=== PATIENT | male | born 1945 | race Caucasian/White ===

== ENCOUNTER 2019-02-25 17:18 | Inpatient (IN) | payer MEDICARE, OTHER ==
[~2019-02-25] VITALS: Ht 188 cm; Wt 111.6 kg
[2019-02-25 17:53] LABS: BASOPHILS # (AUTO) 0.1 X10'3 (0-0.2); BASOPHILS % (AUTO) 1.1 % (0-1); EOSINOPHILS # (AUTO) 0.1 X10'3 (0-0.9); EOSINOPHILS % (AUTO) 0.9 % (0-6); HEMATOCRIT 25.7 % (42.0-52.0); HEMOGLOBIN 8.1 g/dl (14.0-17.9); LYMPHOCYTES # (AUTO) 2.4 X10'3 (1.1-4.8); LYMPHOCYTES % (AUTO) 27.4 % (21-51); MEAN CORPUSCULAR HEMOGLOBIN 23.4 PG (27.0-31.0); MEAN CORPUSCULAR HGB CONC 31.5 g/dL (33.0-36.5); MEAN CORPUSCULAR VOLUME 74.4 FL (78-98); MEAN PLATELET VOLUME 7.6 FL (7.4-10.4); MONOCYTES % (AUTO) 11.7 % (2-12); NEUTROPHILS # (AUTO) 5.2 X10'3 (1.8-7.7); NEUTROPHILS % (AUTO) 58.9 % (42-75); PLATELET COUNT 338 X10'3 (140-440); RED BLOOD COUNT 3.45 X10'6 (4.70-6.10); RED CELL DISTRIBUTION WIDTH 18.1 % (11.5-14.5); WHITE BLOOD COUNT 8.9 X10'3 (4.5-11.0)
[2019-02-25 18:08] LABS: ALANINE AMINOTRANSFERASE 17 U/L (12-78); ALBUMIN 3.5 G/DL (3.4-5.0); ALBUMIN/GLOBULIN RATIO 1.2 (1.1-1.5); ALKALINE PHOSPHATASE 57 IU/L (46-116); ANION GAP 10 (8-16); ASPARTATE AMINO TRANSFERASE 7 U/L (10-37); BILIRUBIN,TOTAL 0.2 MG/DL (0.1-1.0); BLOOD UREA NITROGEN 26 MG/DL (7-18); BUN/CREATININE RATIO 23.6 (5.4-32.0); CALCIUM 8.9 MG/DL (8.5-10.1); CHLORIDE 104 MMOL/L (99-107); GLUCOSE 200 MG/DL (70-104); POTASSIUM 3.7 MMOL/L (3.5-5.1); SODIUM 137 MMOL/L (135-145); TOTAL CARBON DIOXIDE 22.9 MMOL/L (24-32); TOTAL PROTEIN 6.5 G/DL (6.4-8.2); eGFR 66 ML/MIN
[2019-02-25 18:12] LABS: PARTIAL THROMBOPLASTIN TIME 23 SECONDS (22-32); PROTHROMBIN TIME 10.6 SECONDS (9.0-12.0)
[2019-02-25 18:15] LABS: MAGNESIUM 1.8 MG/DL (1.5-2.4)
[2019-02-25] MEDS ORDERED: normal saline 1000ml 1,000 ML IV ONE (18:50)
--- NOTE | 2019-02-25 18:54 | NUR ---
OBTAINED ORTHOSTATIC VITALS DUE TO PT'S SYPTOMS AND H&P, SHOWN TO DR ANTHONY AND ORDERS RECEIVED FOR 1 LITER OF NS BOLUS. PT IS ON 2 DIFFERENT DIURECTICS AND JUST HAD ANTIHYPERTENSIVE MED CHANGED BY [facility] BECAUSE THE LAST ONE WAS ALSO MAKING HIM DIZZY.
[2019-02-25] MEDS ORDERED: pantoprazole IV 80 MG in normal saline 100ml IV soln 100 ML IV ONE ×4 (19:50)
[2019-02-25] MEDS ORDERED: pantoprazole 40MG/NS 100ML BAG 100 ML IV ONE (19:55)
[2019-02-25] MEDS ORDERED: pantoprazole 40 MG vial IV ONE (19:55)
[2019-02-25] MEDS ORDERED: CARV6.253 PO (20:05)
[2019-02-25] MEDS ORDERED: LISI-600 PO (20:05)
[2019-02-25] MEDS ORDERED: FURO-150 PO (20:05)
[2019-02-25] MEDS ORDERED: EZET10TA13 PO (20:05)
[2019-02-25] MEDS ORDERED: SPIR25TA5 PO (20:05)
[2019-02-25] MEDS ORDERED: CLOP75TA15 PO (20:05)
[2019-02-25] MEDS ORDERED: ROSU5TAB PO (20:05)
--- NOTE | 2019-02-25 20:06 | NUR ---
RECTAL EXAM PER DR ANTHONY, OCCULT BLOOD POSITIVE, PLAN ADMIT AND POSSIBLE EGD PT IS ON PLAVIX.
[2019-02-25] MEDS ORDERED: temazepam 15mg capsule PO PRN (21:00)
[2019-02-25] MEDS ORDERED: magnesium hydroxide 30ml (MOM) UD suspension PO PRN (21:05)
[2019-02-25] MEDS ORDERED: HYDROcodone/acetaminophen 10/325mg tab PO PRN (21:05)
[2019-02-25] MEDS ORDERED: HYDROcodone/acetaminophen 5mg/325mg tablet PO PRN (21:05)
[2019-02-25] MEDS ORDERED: ondansetron/PF 4mg/2ml inj IV PRN (21:05)
[2019-02-25] MEDS ORDERED: mag hydrox/Alum hydrox/simeth 30ml oral suspension PO PRN (21:05)
[2019-02-25] MEDS ORDERED: acetaminophen 325mg tablet PO PRN ×2 (21:05)
[2019-02-25] MEDS: normal saline 1000ml 1,000 ML IV SCH (21:23)
--- NOTE | 2019-02-25 21:41 | NUR ---
NURSE UNAVAIL FOR REPORT, WITH PT, TO CALL BACK
[2019-02-25 21:43] LABS: OCCULT BLOOD STOOL POSITIVE (Neg)
[2019-02-25 22:15] VITALS: BP 129/64
[2019-02-26] VITALS (12 sets, daily range): BP systolic 106–151; BP diastolic 55–76
[2019-02-26] MEDS: pantoprazole 40MG/NS 100ML BAG 100 ML IV SCH ×4 (01:54→13:55)
--- NOTE | 2019-02-26 06:07 | NUR ---
Problems reprioritized. Patient report given, questions answered & plan of care reviewed with SREEKANTH Machuca.
--- NOTE | 2019-02-26 06:08 | NUR ---
Patient in room PCU 3023. I have received report from SREEKANTH Machuca and had the opportunity to ask questions and assume patient care.
[2019-02-26 06:32] LABS: BASOPHILS % (AUTO) 0.6 % (0-1); EOSINOPHILS # (AUTO) 0.1 X10'3 (0-0.9); EOSINOPHILS % (AUTO) 1.6 % (0-6); HEMOGLOBIN 7.2 g/dl (14.0-17.9); LYMPHOCYTES # (AUTO) 2.3 X10'3 (1.1-4.8); LYMPHOCYTES % (AUTO) 31.6 % (21-51); MEAN CORPUSCULAR HEMOGLOBIN 23.6 PG (27.0-31.0); MEAN CORPUSCULAR HGB CONC 31.4 g/dL (33.0-36.5); MEAN CORPUSCULAR VOLUME 75.2 FL (78-98); MEAN PLATELET VOLUME 7.8 FL (7.4-10.4); MONOCYTES # (AUTO) 0.8 X10'3 (0-0.9); MONOCYTES % (AUTO) 11.5 % (2-12); NEUTROPHILS % (AUTO) 54.7 % (42-75); PLATELET COUNT 329 X10'3 (140-440); RED BLOOD COUNT 3.06 X10'6 (4.70-6.10); RED CELL DISTRIBUTION WIDTH 18.1 % (11.5-14.5); WHITE BLOOD COUNT 7.4 X10'3 (4.5-11.0)
[2019-02-26 06:52] LABS: ANION GAP 9 (8-16); BLOOD UREA NITROGEN 20 MG/DL (7-18); CALCIUM 8.6 MG/DL (8.5-10.1); CHLORIDE 107 MMOL/L (99-107); CREATININE 0.87 MG/DL (0.60-1.10); GLUCOSE 166 MG/DL (70-104); POTASSIUM 3.5 MMOL/L (3.5-5.1); SODIUM 141 MMOL/L (135-145); TOTAL CARBON DIOXIDE 25.4 MMOL/L (24-32); eGFR 86 ML/MIN
[2019-02-26] MEDS: lisinopril 20mg tablet PO SCH (08:00)
[2019-02-26] MEDS: ezetimibe 10mg tablet PO SCH (08:00)
[2019-02-26] MEDS: carvedilol 6.25mg tablet PO SCH ×2 (08:00→19:18)
[2019-02-26] MEDS: normal saline 1000ml 1,000 ML IV SCH ×2 (08:14→17:03)
--- NOTE | 2019-02-26 10:57 | NUR ---
Notified of telephone recorder of 4 beat run of V-tach. Pt assessed and vital signs obtained; all WNL. Dr. Flores notified at nurse's station. Orders received re hyperglycemic protocol, diabetes education & carb controlled diet. Pt to remain NPO while awaiting EGD.
[2019-02-26] MEDS ORDERED: insulin Lispro (HumaLOG) vial - multi-dose SQ SCH (11:00)
[2019-02-26] MEDS ORDERED: dextrose 50%-water 50ml dispensing syringe IV PRN ×2 (11:00)
[2019-02-26] MEDS ORDERED: glucagon, human recombinant 1mg kit SUBCUT PRN (11:00)
[2019-02-26] MEDS ORDERED: dextrose ORAL solution 15 GM/59 ML bottle PO PRN ×2 (11:00)
[2019-02-26] MEDS ORDERED: MESSAGE TO PHARMACY PO ONE (11:00)
[2019-02-26 12:26] LABS: HEMATOCRIT 24.5 % (42.0-52.0); MEAN CORPUSCULAR HEMOGLOBIN 24.4 PG (27.0-31.0); MEAN CORPUSCULAR HGB CONC 32.7 g/dL (33.0-36.5); MEAN CORPUSCULAR VOLUME 74.6 FL (78-98); MEAN PLATELET VOLUME 7.7 FL (7.4-10.4); PLATELET COUNT 337 X10'3 (140-440); RED BLOOD COUNT 3.29 X10'6 (4.70-6.10); RED CELL DISTRIBUTION WIDTH 18.3 % (11.5-14.5); WHITE BLOOD COUNT 9.9 X10'3 (4.5-11.0)
--- NOTE | 2019-02-26 13:07 | NUR ---
DM Consult: A1C 9.0. Pt admit w/ dizziness found to have GIB currently NPO pending EGD. Pt hx blind, heard of hearing, TKA, and lives w/ spouse per EMR. No DM meds at home in EMR and states borderline DM though A1C 9.0. Pt not appropriate for written ed but /pt would benefit from ed once pt stable s/p EGD. LB 02/25. Will continue to monitor for appropriateness of DM ed prior to d/c. Rec: 1. continue regular diet 2. monitor for ONS needs 3. DM ed w/ spouse once stable prior to d/c 4. wt per rx Addendum: 02/26/19 at [address] Amended: Links added.
--- NOTE | 2019-02-26 14:15 | NUR ---
Pt transported out of room via wheelchair to GI lab.
[2019-02-26] MEDS ORDERED: fentaNYL/PF 50MCG/1 ML 2ML syringe ONE (14:28)
[2019-02-26] MEDS ORDERED: MIDAZolam 5mg/5ml vial ONE (14:28)
[2019-02-26] MEDS ORDERED: LIDOcaine Viscous 15ml cup ONE (14:31)
--- NOTE | 2019-02-26 15:41 | NUR ---
Pt returned to room from GI lab.
--- NOTE | 2019-02-26 17:45 | NUR ---
Dr. Flores at bedside.
--- NOTE | 2019-02-26 18:17 | NUR ---
Problems reprioritized. Patient report given, questions answered & plan of care reviewed with SREEKANTH Tilley.
--- NOTE | 2019-02-26 18:25 | NUR ---
Patient in room PCU 3023A. I have received report from SREEKANTH Machuca and had the opportunity to ask questions and assume patient care.
--- NOTE | 2019-02-26 18:30 | NUR ---
Patient in room PCU 3023. I have received report from DAY SHIFT RN and had the opportunity to ask questions and assume patient care WITH KRISTA STACK
[2019-02-26] MEDS: pantoprazole 40 MG vial IV SCH (19:18)
[2019-02-26] MEDS: insulin glargine (Lantus) pen - multi-dose SQ SCH (21:00)
--- NOTE | 2019-02-26 21:21 | NUR ---
Lantus non-administered due to MD order NPO post administration of gastrografin for CAB.
[2019-02-26] MEDS: diatr meglu/diatrizoate 30ml oral sol.-(3 dose) bottle PO SCH (22:33)
[2019-02-27] VITALS (13 sets, daily range): BP systolic 104–157; BP diastolic 63–76
[2019-02-27] MEDS: normal saline 1000ml 1,000 ML IV SCH (03:03)
--- NOTE | 2019-02-27 05:30 | NUR ---
oRIENTEE documentation: I have reviewed and agree with all interventions, assessments performed and documented by Aishwarya flores.
[2019-02-27 06:08] LABS: BASOPHILS % (AUTO) 0.7 % (0-1); EOSINOPHILS # (AUTO) 0.1 X10'3 (0-0.9); EOSINOPHILS % (AUTO) 2.4 % (0-6); LYMPHOCYTES # (AUTO) 1.6 X10'3 (1.1-4.8); LYMPHOCYTES % (AUTO) 25.8 % (21-51); MEAN CORPUSCULAR HEMOGLOBIN 23.9 PG (27.0-31.0); MEAN CORPUSCULAR HGB CONC 32.1 g/dL (33.0-36.5); MEAN CORPUSCULAR VOLUME 74.3 FL (78-98); MEAN PLATELET VOLUME 7.6 FL (7.4-10.4); MONOCYTES # (AUTO) 0.6 X10'3 (0-0.9); MONOCYTES % (AUTO) 10.5 % (2-12); NEUTROPHILS # (AUTO) 3.7 X10'3 (1.8-7.7); NEUTROPHILS % (AUTO) 60.6 % (42-75); PLATELET COUNT 285 X10'3 (140-440); RED BLOOD COUNT 2.74 X10'6 (4.70-6.10); RED CELL DISTRIBUTION WIDTH 18.4 % (11.5-14.5); WHITE BLOOD COUNT 6.1 X10'3 (4.5-11.0)
[2019-02-27 06:16] LABS: HEMATOCRIT 20.4 % (42.0-52.0); HEMOGLOBIN 6.5 g/dl (14.0-17.9)
[2019-02-27 06:19] LABS: ALBUMIN 2.8 G/DL (3.4-5.0); ANION GAP 9 (8-16); BLOOD UREA NITROGEN 15 MG/DL (7-18); BUN/CREATININE RATIO 17.9 (5.4-32.0); CALCIUM 8.5 MG/DL (8.5-10.1); CHLORIDE 108 MMOL/L (99-107); CREATININE 0.84 MG/DL (0.60-1.10); GLUCOSE 160 MG/DL (70-104); POTASSIUM 3.9 MMOL/L (3.5-5.1); SODIUM 141 MMOL/L (135-145); eGFR 90 ML/MIN
--- NOTE | 2019-02-27 06:29 | NUR ---
Patient in room PCU 3023. I have received report from SREEKANTH Tilley and had the opportunity to ask questions and assume patient care.
--- NOTE | 2019-02-27 06:30 | NUR ---
Notified Dr. Malave of critical H&H of 6.5 and 20.4. TORB DC NS 100 mL/hr, Transfuse 1 unit PRBC's, and draw hemogram 2 hours after transfusion. Notified oncoming nurse, SREEKANTH Machuca.
--- NOTE | 2019-02-27 06:35 | NUR ---
Problems reprioritized. Patient report given, questions answered & plan of care reviewed with SREEKANTH Machuca.
[2019-02-27] MEDS: diatr meglu/diatrizoate 30ml oral sol.-(3 dose) bottle PO SCH ×2 (07:17→11:50)
[2019-02-27] MEDS: carvedilol 6.25mg tablet PO SCH ×2 (07:20→20:55)
[2019-02-27] MEDS: atorvastatin 20mg tablet PO SCH (07:21)
[2019-02-27] MEDS: pantoprazole 40 MG vial IV SCH ×2 (07:25→20:55)
[2019-02-27] MEDS: lisinopril 20mg tablet PO SCH (07:30)
[2019-02-27] MEDS: ezetimibe 10mg tablet PO SCH (07:31)
--- NOTE | 2019-02-27 09:36 | NUR ---
Paged Dr. Flores re recent order of blood. PAGER ID: [phone] MESSAGE: Abdiel Burgos in [phone]. Dr. Malave ordered blood this AM, currently running. Do you want another? Thanks! Brigette STACK [phone] Addendum: 02/27/19 at 1013 by Mary Grace Jiménez RN Dr. Flores at bedside, order received to cancel 2nd blood order.
[2019-02-27] MEDS ORDERED: iohexol 300mg/ml 100ml inj. ONE (10:05)
[2019-02-27 13:30] LABS: HEMATOCRIT 25.5 % (42.0-52.0); MEAN CORPUSCULAR HEMOGLOBIN 23.7 PG (27.0-31.0); MEAN CORPUSCULAR HGB CONC 31.4 g/dL (33.0-36.5); MEAN CORPUSCULAR VOLUME 75.3 FL (78-98); MEAN PLATELET VOLUME 7.5 FL (7.4-10.4); PLATELET COUNT 331 X10'3 (140-440); RED BLOOD COUNT 3.39 X10'6 (4.70-6.10); WHITE BLOOD COUNT 7.5 X10'3 (4.5-11.0)
--- NOTE | 2019-02-27 14:49 | NUR ---
F/u: Pt seen by RD for written/verbal DM ed w/ RD contact information provided. Pt is able to see and watch tv w/ specialized glasses on. not present but RD answered pt questions/concerns regarding DM diet guidelines. Pt carb controlled diet cancelled; [employer] for addition of carb controlled per approval given A1C 9.0. Addendum: 02/27/19 at [address] Amended: Links added.
--- NOTE | 2019-02-27 18:28 | NUR ---
Patient in room PCU 3023. I have received report from SREEKANTH Villa and had the opportunity to ask questions and assume patient care.
--- NOTE | 2019-02-27 18:30 | NUR ---
Patient in room PCU 3023. I have received report from Brigette STACK and had the opportunity to ask questions and assume patient care.
[2019-02-27 19:38] LABS: HEMATOCRIT 25.2 % (42.0-52.0); HEMOGLOBIN 8.2 g/dl (14.0-17.9); MEAN CORPUSCULAR HEMOGLOBIN 24.4 PG (27.0-31.0); MEAN CORPUSCULAR HGB CONC 32.3 g/dL (33.0-36.5); MEAN CORPUSCULAR VOLUME 75.4 FL (78-98); MEAN PLATELET VOLUME 7.5 FL (7.4-10.4); PLATELET COUNT 327 X10'3 (140-440); RED BLOOD COUNT 3.35 X10'6 (4.70-6.10); RED CELL DISTRIBUTION WIDTH 18.8 % (11.5-14.5); WHITE BLOOD COUNT 6.8 X10'3 (4.5-11.0)
[2019-02-27] MEDS: docusate sod 100mg capsule PO SCH (20:55)
[2019-02-27] MEDS: insulin glargine (Lantus) pen - multi-dose SQ SCH (21:00)
[2019-02-28 01:27] LABS: ALBUMIN 3.2 G/DL (3.4-5.0); ANION GAP 7 (8-16); BLOOD UREA NITROGEN 13 MG/DL (7-18); BUN/CREATININE RATIO 13.4 (5.4-32.0); CALCIUM 8.8 MG/DL (8.5-10.1); CHLORIDE 106 MMOL/L (99-107); CREATININE 0.97 MG/DL (0.60-1.10); GLUCOSE 131 MG/DL (70-104); POTASSIUM 3.9 MMOL/L (3.5-5.1); SODIUM 141 MMOL/L (135-145); TOTAL CARBON DIOXIDE 27.6 MMOL/L (24-32); eGFR 76 ML/MIN
[2019-02-28 01:29] LABS: BASOPHILS # (AUTO) 0.1 X10'3 (0-0.2); BASOPHILS % (AUTO) 1.2 % (0-1); EOSINOPHILS # (AUTO) 0.2 X10'3 (0-0.9); EOSINOPHILS % (AUTO) 3.3 % (0-6); HEMATOCRIT 24.6 % (42.0-52.0); HEMOGLOBIN 7.9 g/dl (14.0-17.9); LYMPHOCYTES % (AUTO) 33.5 % (21-51); MEAN CORPUSCULAR HEMOGLOBIN 24.2 PG (27.0-31.0); MEAN CORPUSCULAR HGB CONC 32.1 g/dL (33.0-36.5); MEAN CORPUSCULAR VOLUME 75.6 FL (78-98); MEAN PLATELET VOLUME 7.5 FL (7.4-10.4); MONOCYTES # (AUTO) 0.8 X10'3 (0-0.9); MONOCYTES % (AUTO) 13.4 % (2-12); NEUTROPHILS # (AUTO) 2.8 X10'3 (1.8-7.7); NEUTROPHILS % (AUTO) 48.6 % (42-75); PLATELET COUNT 326 X10'3 (140-440); RED BLOOD COUNT 3.25 X10'6 (4.70-6.10); RED CELL DISTRIBUTION WIDTH 18.6 % (11.5-14.5); WHITE BLOOD COUNT 5.8 X10'3 (4.5-11.0)
[2019-02-28 02:00] VITALS: BP 123/69
[2019-02-28 03:36] LABS: PLATELET ESTIMATE NORMAL
[2019-02-28 03:37] LABS: ANISOCYTOSIS 2+; HYPOCHROMASIA 1+; MICROCYTOSIS 1+; POLYCHROMASIA 1+
[2019-02-28 06:00] VITALS: BP 110/74
--- NOTE | 2019-02-28 06:18 | NUR ---
Problems reprioritized. Patient report given, questions answered & plan of care reviewed with Stefany STACK.
--- NOTE | 2019-02-28 06:30 | NUR ---
Patient in room PCU 3023. I have received report from Daisy STACK and had the opportunity to ask questions and assume patient care. Patient awake in bed and in no acute distress. Will continue to monitor.
[2019-02-28 07:32] LABS: HEMATOCRIT 24.8 % (42.0-52.0); MEAN CORPUSCULAR HEMOGLOBIN 24.1 PG (27.0-31.0); MEAN CORPUSCULAR HGB CONC 32.2 g/dL (33.0-36.5); MEAN CORPUSCULAR VOLUME 74.9 FL (78-98); MEAN PLATELET VOLUME 7.3 FL (7.4-10.4); PLATELET COUNT 340 X10'3 (140-440); RED BLOOD COUNT 3.31 X10'6 (4.70-6.10); RED CELL DISTRIBUTION WIDTH 18.7 % (11.5-14.5); WHITE BLOOD COUNT 6.8 X10'3 (4.5-11.0)
[2019-02-28] MEDS: pantoprazole 40 MG vial IV SCH ×3 (07:40→19:58)
[2019-02-28] MEDS: docusate sod 100mg capsule PO SCH ×2 (09:56→19:58)
[2019-02-28] MEDS: lisinopril 20mg tablet PO SCH (09:56)
[2019-02-28] MEDS: carvedilol 6.25mg tablet PO SCH ×2 (09:56→19:58)
[2019-02-28] MEDS: ezetimibe 10mg tablet PO SCH (09:56)
[2019-02-28 11:00] VITALS: BP 140/74
--- NOTE | 2019-02-28 13:40 | NUR ---
Patient met hyperglycemic protocol. Did not administer Humalog per protocol as patient refused.
--- NOTE | 2019-02-28 13:42 | NUR ---
Paged Dr. Velasquez: PAGER ID: [phone] MESSAGE: Stefany Liz [phone]. RE: Marcela Burgos [phone]. FYI - notified by telephone solicitor that patient just had 2.5 second pause. Patient was awake in bed and asymptomatic.
[2019-02-28 15:00] VITALS: BP 119/64
[2019-02-28 18:00] VITALS: BP 121/64
--- NOTE | 2019-02-28 18:11 | NUR ---
Problems reprioritized. Patient report given, questions answered & plan of care reviewed with Daisy STACK.
--- NOTE | 2019-02-28 18:30 | NUR ---
Patient in room PCU 3023. I have received report from Stefany STACK and had the opportunity to ask questions and assume patient care.
[2019-02-28] MEDS: insulin glargine (Lantus) pen - multi-dose SQ SCH (21:00)
[2019-02-28 22:00] VITALS: BP 107/49
[2019-03-01 02:00] VITALS: BP 135/77
[2019-03-01 05:59] LABS: BASOPHILS # (AUTO) 0.1 X10'3 (0-0.2); EOSINOPHILS # (AUTO) 0.2 X10'3 (0-0.9); EOSINOPHILS % (AUTO) 2.4 % (0-6); HEMATOCRIT 26.4 % (42.0-52.0); HEMOGLOBIN 8.6 g/dl (14.0-17.9); LYMPHOCYTES # (AUTO) 2.1 X10'3 (1.1-4.8); LYMPHOCYTES % (AUTO) 26.2 % (21-51); MEAN CORPUSCULAR HEMOGLOBIN 24.1 PG (27.0-31.0); MEAN CORPUSCULAR HGB CONC 32.4 g/dL (33.0-36.5); MEAN CORPUSCULAR VOLUME 74.2 FL (78-98); MEAN PLATELET VOLUME 7.6 FL (7.4-10.4); MONOCYTES # (AUTO) 0.9 X10'3 (0-0.9); MONOCYTES % (AUTO) 11.6 % (2-12); NEUTROPHILS # (AUTO) 4.7 X10'3 (1.8-7.7); NEUTROPHILS % (AUTO) 58.8 % (42-75); PLATELET COUNT 365 X10'3 (140-440); RED BLOOD COUNT 3.56 X10'6 (4.70-6.10); RED CELL DISTRIBUTION WIDTH 19.2 % (11.5-14.5); WHITE BLOOD COUNT 7.9 X10'3 (4.5-11.0)
[2019-03-01 06:06] LABS: ALBUMIN 3.3 G/DL (3.4-5.0); ANION GAP 8 (8-16); BLOOD UREA NITROGEN 14 MG/DL (7-18); BUN/CREATININE RATIO 15.7 (5.4-32.0); CALCIUM 9.1 MG/DL (8.5-10.1); CHLORIDE 104 MMOL/L (99-107); CREATININE 0.89 MG/DL (0.60-1.10); GLUCOSE 164 MG/DL (70-104); POTASSIUM 3.8 MMOL/L (3.5-5.1); SODIUM 137 MMOL/L (135-145); TOTAL CARBON DIOXIDE 25.5 MMOL/L (24-32); eGFR 84 ML/MIN
--- NOTE | 2019-03-01 06:12 | NUR ---
Problems reprioritized. Patient report given, questions answered & plan of care reviewed with Stefany STACK.
[2019-03-01 06:33] LABS: ANISOCYTOSIS 2+; LARGE PLATELETS FEW; MICROCYTOSIS 1+; PLATELET ESTIMATE NORMAL
[2019-03-01 06:34] LABS: HYPOCHROMASIA 1+; POLYCHROMASIA FEW
--- NOTE | 2019-03-01 06:35 | NUR ---
Patient in room PCU 3022. I have received report from Daisy STACK and had the opportunity to ask questions and assume patient care. Patient resting comfortably in bed. In no acute distress. Will continue to monitor.
[2019-03-01 07:00] VITALS: BP 116/66
[2019-03-01] MEDS: carvedilol 6.25mg tablet PO SCH (08:00)
[2019-03-01] MEDS: docusate sod 100mg capsule PO SCH (08:00)
[2019-03-01] MEDS: lisinopril 20mg tablet PO SCH (08:00)
[2019-03-01] MEDS: atorvastatin 20mg tablet PO SCH (09:47)
[2019-03-01] MEDS: ezetimibe 10mg tablet PO SCH (09:47)
[2019-03-01] MEDS: pantoprazole 40 MG vial IV SCH (09:48)
--- NOTE | 2019-03-01 10:54 | NUR ---
Paged Dr. Rey: PAGER ID: [phone] MESSAGE: Stefany [facility] [phone]. RE: Aubrey, Marcela [phone]. I have a hardcopy of the pathology report you requested. I put it in the front of the patient's chart for your review. Thank you.
[2019-03-01 11:00] VITALS: BP 126/65
[2019-03-01] MEDS ORDERED: PANT-47 PO (11:37)
[2019-03-01] MEDS ORDERED: ASPI81TA52 PO (11:39)
--- NOTE | 2019-03-01 14:30 | NUR ---
[place] Medication Administration: For this medication-pass time frame, all medication were reviewed, dispensed, administered and documented per hospital policy by Rachel STACK.
== END 2019-03-01 14:23 | disposition home or self-care (01) | DRG 378 ==
LOC: ER 17:19 → PCU 3S 21:03 → CMPBEDREQ 02-26 01:38 → PCU 3S 03-01 02:11
PROVIDERS: ADMIT Hospitalist; ATTEND Internal Medicine
PROC: 0DB98ZX Excision of Duodenum, Via Natural or Artificial Opening Endoscopic, Diagnostic (ICD-10-PCS; principal; 2019-02-26)
PROC: 30233N1 Transfusion of Nonautologous Red Blood Cells into Peripheral Vein, Percutaneous Approach (ICD-10-PCS; 2019-02-27)
PROC: BW251ZZ Computerized Tomography (CT Scan) of Chest, Abdomen and Pelvis using Low Osmolar Contrast (ICD-10-PCS; 2019-02-27)
DX: K26.4 Chronic or unspecified duodenal ulcer with hemorrhage (principal); D62 Acute posthemorrhagic anemia; I50.9 Heart failure, unspecified; I25.10 Atherosclerotic heart disease of native coronary artery without angina pectoris; D50.9 Iron deficiency anemia, unspecified; E27.8 Other specified disorders of adrenal gland; K31.89 Other diseases of stomach and duodenum; Z96.652 Presence of left artificial knee joint; H54.7 Unspecified visual loss; H91.90 Unspecified hearing loss, unspecified ear; Z95.5 Presence of coronary angioplasty implant and graft; Z79.899 Other long term (current) drug therapy; Z79.02 Long term (current) use of antithrombotics/antiplatelets; Z85.828 Personal history of other malignant neoplasm of skin
CPT/HCPCS: 36415; 43239; 70470; 71045; 71260; 74177; 80048; 80053; 82272; 82948; 83036; 83735; 83880; 84484; 85025; 85027; 85610; 85730; 86885; 86900; 86901; 86920; 87070; 88305; 93005; 99153; 99291; A4620; C9113; G0378; J1815; J2250; J3010; J7030; P9016; Q9963; Q9967